=== PATIENT | female | born 1935 | race Caucasian/White ===

== ENCOUNTER 2020-04-24 22:49 | Inpatient (IN) ==
[2020-04-25] MEDS ORDERED: *HR* FentaNYL (PF) 100 MCG/2 ML VIAL IVP ONE (01:03)
[2020-04-25 01:59] LABS: Basophils # 0.1 K/mcL (0.0-0.2); Basophils % 0.7 %; Eosinophils # 0.3 K/mcL (0.0-0.6); Eosinophils % 2.8 %; Hematocrit 42.6 % (35.3-44.9); Hemoglobin 13.7 g/dL (11.5-15.4); Immature Granulocytes % 0.2 % (0-4); Lymphocytes # 2.4 K/mcL (0.6-4.6); Lymphocytes % 27.4 %; Mean Corpuscular HGB Conc 32.2 g/dL (31.6-35.5); Mean Corpuscular Hemoglobin 32.3 pg (28.0-33.3); Mean Corpuscular Volume 100.5 fL (83.0-100.0); Mean Platelet Volume 9.9 fL (9.4-12.4); Monocytes # 0.8 K/mcL (0.0-1.3); Monocytes % 9.2 %; Neutrophils # 5.3 K/mcL (1.6-8.9); Platelet Count 228 K/mcL (140-400); Red Blood Count 4.24 M/mcL (3.82-4.97); Red Cell Distribution Width 13.2 % (11.5-14.5); Segmented Neutrophils % 59.7 %; White Blood Count 8.9 K/mcL (4.3-11.1)
[2020-04-25 02:20] LABS: BUN/Creatinine Ratio 25 (6-26); Blood Urea Nitrogen 21 mg/dL (8-23); Calcium 9.7 mg/dL (8.6-10.3); Carbon Dioxide 24 mEq/L (23-29); Chloride 103 mEq/L (98-107); Glucose 109 mg/dL (70-105); Osmolality,Calculated 292 (280-300); Potassium 4.1 mEq/L (3.5-5.1); Sodium 139 mEq/L (136-145); eGFR For African Americans > 60 (> 60); eGFR For Non-African Americans > 60 (> 60)
[2020-04-25 02:46] LABS: Adenovirus Not Detected (Not Detect); Bordetella Pertussis Not Detected (Not Detect); Chlamydophila pneumoniae Not Detected (Not Detect); Coronavirus 229E Not Detected (Not Detect); Coronavirus HKU1 Not Detected (Not Detect); Coronavirus NL63 Not Detected (Not Detect); Coronavirus OC43 Not Detected (Not Detect); Human Metapneumovirus Not Detected (Not Detect); Human Rhinovirus/Enterovirus Not Detected (Not Detect); Influenza A Subtype 2009 H1 Not Detected (Not Detect); Influenza B Not Detected (Not Detect); Mycoplasma pneumoniae Not Detected (Not Detect); Parainfluenza Virus 1 Not Detected (Not Detect); Parainfluenza Virus 2 Not Detected (Not Detect); Parainfluenza Virus 3 Not Detected (Not Detect); Parainfluenza Virus 4 Not Detected (Not Detect); Respiratory Syncytial Virus Not Detected (Not Detect); SARS-CoV-2 Not Detected (Not Detect)
[2020-04-25] MEDS ORDERED: Naloxone 0.4 MG/ML INJ IVP PRN (03:36)
[2020-04-25] MEDS ORDERED: Morphine Sulfate 2 MG/ML SYRINGE IVP PRN (03:56)
[2020-04-25] MEDS: *HR* HYDROmorphone (PF) 1 MG/ML SYRINGE IVP PRN (04:59)
[2020-04-25] MEDS: Ondansetron 4 MG/2 ML VIAL IVP PRN ×2 (06:30→19:58)
[2020-04-25] MEDS ORDERED: Ipratropium/Albuterol Neb 3 ML IH PRN (06:58)
[2020-04-25] MEDS: Primidone 50 MG TABLET PO SCH ×2 (09:07→20:54)
[2020-04-25] MEDS ORDERED: Acetaminophen IV 500 MG/50 ML INFUS..BTL IVPB ONE (09:30)
[2020-04-25] MEDS: Acetaminophen IV 500 MG/50 ML INFUS..BTL IVPB SCH ×2 (17:37→22:26)
[2020-04-25] MEDS: ALPRAZolam 0.25 MG TABLET PO SCH (20:55)
[2020-04-25] MEDS: QUEtiapine Fumarate 300 MG TABLET PO SCH (20:56)
[2020-04-25] MEDS: FLUPHENAZINE PO SCH (22:21)
[2020-04-26] MEDS: Acetaminophen IV 500 MG/50 ML INFUS..BTL IVPB SCH ×4 (03:18→23:09)
[2020-04-26] MEDS: QUEtiapine Fumarate 300 MG TABLET PO SCH ×2 (09:39→21:54)
[2020-04-26] MEDS: Primidone 50 MG TABLET PO SCH ×2 (09:40→19:53)
[2020-04-26] MEDS: *HR* HYDROmorphone (PF) 1 MG/ML SYRINGE IVP PRN (09:40)
[2020-04-26] MEDS: Vitamin E 200 UNIT (90MG) CAPSULE PO SCH (10:11)
[2020-04-26] MEDS: Cholecalciferol (D-3) 1,000 UNIT (25MCG) TABLET PO SCH (10:11)
[2020-04-26] MEDS: ALPRAZolam 0.25 MG TABLET PO SCH (19:53)
[2020-04-26] MEDS: FLUPHENAZINE PO SCH (19:56)
[2020-04-27 02:17] LABS: Basophils % 0.7 %; Eosinophils # 0.3 K/mcL (0.0-0.6); Hematocrit 36.5 % (35.3-44.9); Immature Granulocytes % 0.2 % (0-4); Lymphocytes # 2.3 K/mcL (0.6-4.6); Lymphocytes % 39.2 %; Mean Corpuscular HGB Conc 32.3 g/dL (31.6-35.5); Mean Corpuscular Hemoglobin 33.2 pg (28.0-33.3); Mean Corpuscular Volume 102.8 fL (83.0-100.0); Mean Platelet Volume 10.1 fL (9.4-12.4); Monocytes # 0.8 K/mcL (0.0-1.3); Monocytes % 13.1 %; Neutrophils # 2.4 K/mcL (1.6-8.9); Platelet Count 177 K/mcL (140-400); Red Blood Count 3.55 M/mcL (3.82-4.97); Red Cell Distribution Width 12.9 % (11.5-14.5); Segmented Neutrophils % 41.8 %; White Blood Count 5.8 K/mcL (4.3-11.1)
[2020-04-27 02:18] LABS: Hemoglobin 11.8 g/dL (11.5-15.4)
[2020-04-27 02:37] LABS: BUN/Creatinine Ratio 26 (6-26); Blood Urea Nitrogen 23 mg/dL (8-23); Calcium 8.2 mg/dL (8.6-10.3); Carbon Dioxide 27 mEq/L (23-29); Chloride 105 mEq/L (98-107); Glucose 101 mg/dL (70-105); Osmolality,Calculated 286 (280-300); Potassium 4.1 mEq/L (3.5-5.1); Sodium 136 mEq/L (136-145); eGFR For African Americans > 60 (> 60); eGFR For Non-African Americans > 60 (> 60)
[2020-04-27] MEDS: Acetaminophen IV 500 MG/50 ML INFUS..BTL IVPB SCH ×4 (03:50→21:41)
[2020-04-27] MEDS: QUEtiapine Fumarate 300 MG TABLET PO SCH (09:19)
[2020-04-27] MEDS: Primidone 50 MG TABLET PO SCH ×2 (09:19→21:39)
[2020-04-27] MEDS: Cholecalciferol (D-3) 1,000 UNIT (25MCG) TABLET PO SCH (09:20)
[2020-04-27] MEDS: Vitamin E 200 UNIT (90MG) CAPSULE PO SCH (09:20)
[2020-04-27] MEDS ORDERED: *HR* HYDROmorphone PF 0.5 MG/0.5 ML SYRINGE IVP PRN ×2 (17:48→20:42)
[2020-04-27] MEDS ORDERED: *HR* OxyCODONE Immed Rel 5 MG TABLET PO PRN ×2 (17:48→20:42)
[2020-04-27] MEDS ORDERED: ROPIVACAINE/PF/NS 0.25% 1 EACH SYRINGE INTRAART ONE (17:54)
[2020-04-27] MEDS ORDERED: Ropivacaine/PF 0.5% 30 ML VIAL ONE ×2 (17:57→18:00)
[2020-04-27] MEDS ORDERED: *HR* FentaNYL (PF) 100 MCG/2 ML VIAL ONE (18:05)
[2020-04-27] MEDS ORDERED: Ondansetron 4 MG/2 ML VIAL ONE (18:22)
[2020-04-27] MEDS ORDERED: Dexamethasone 4 MG/ML VIAL ONE (18:22)
[2020-04-27] MEDS ORDERED: Lidocaine -MPF 2% 2 ML VIAL ONE (18:22)
[2020-04-27] MEDS ORDERED: *HR* Propofol 200 MG/20 ML VIAL IVP ONE (18:23)
[2020-04-27] MEDS ORDERED: ceFAZolin 2,000 MG in Water for inj. (sterile) 20 ML IVP ONE (18:58)
[2020-04-27] MEDS ORDERED: *HR* HYDROmorphone (PF) 1 MG/ML SYRINGE IVP PRN (20:42)
[2020-04-27] MEDS ORDERED: Ipratropium/Albuterol Neb 3 ML IH PRN (20:42)
[2020-04-27] MEDS ORDERED: Naloxone 0.4 MG/ML INJ IVP PRN (20:42)
[2020-04-27] MEDS ORDERED: Ondansetron 4 MG/2 ML VIAL IVP PRN (20:42)
[2020-04-27 20:58] LABS: Hematocrit 39.8 % (35.3-44.9); Hemoglobin 12.9 g/dL (11.5-15.4)
[2020-04-27] MEDS ORDERED: QUEtiapine Fumarate 100 MG TABLET PO SCH (21:00)
[2020-04-27] MEDS ORDERED: Patient Taking Own Medication 1 EACH PO SCH (21:00)
[2020-04-27] MEDS: QUEtiapine Fumarate 100 MG TABLET PO SCH (21:39)
[2020-04-27] MEDS: ALPRAZolam 0.25 MG TABLET PO SCH (21:39)
[2020-04-27] MEDS: FLUPHENAZINE PO SCH (21:41)
[2020-04-28] MEDS: ceFAZolin 2,000 MG in 0.9 % Sodium Chloride 100 ML IVPB SCH ×2 (00:02→08:10)
[2020-04-28 03:04] LABS: Hematocrit 36.8 % (35.3-44.9); Mean Corpuscular HGB Conc 32.6 g/dL (31.6-35.5); Mean Corpuscular Hemoglobin 33.6 pg (28.0-33.3); Mean Corpuscular Volume 103.1 fL (83.0-100.0); Mean Platelet Volume 9.9 fL (9.4-12.4); Platelet Count 177 K/mcL (140-400); Red Blood Count 3.57 M/mcL (3.82-4.97); Red Cell Distribution Width 12.6 % (11.5-14.5); White Blood Count 5.6 K/mcL (4.3-11.1)
[2020-04-28] MEDS: Acetaminophen IV 500 MG/50 ML INFUS..BTL IVPB SCH ×4 (04:01→21:14)
[2020-04-28] MEDS: QUEtiapine Fumarate 100 MG TABLET PO SCH ×2 (07:36→20:32)
[2020-04-28] MEDS: Vitamin E 200 UNIT (90MG) CAPSULE PO SCH (07:36)
[2020-04-28] MEDS: Cholecalciferol (D-3) 1,000 UNIT (25MCG) TABLET PO SCH (07:38)
[2020-04-28] MEDS: Primidone 50 MG TABLET PO SCH ×2 (07:38→20:33)
[2020-04-28] MEDS ORDERED: QUEtiapine Fumarate 100 MG TABLET PO SCH (09:00)
[2020-04-28] MEDS ORDERED: (Alendronate Sodium [Fosamax] 70 MG) PO SCH (17:45)
[2020-04-28] MEDS: ALPRAZolam 0.25 MG TABLET PO SCH (20:32)
[2020-04-28] MEDS: FLUPHENAZINE PO SCH (20:34)
[2020-04-29] MEDS: Acetaminophen IV 500 MG/50 ML INFUS..BTL IVPB SCH ×2 (03:06→09:07)
[2020-04-29 05:31] LABS: Hematocrit 34.6 % (35.3-44.9); Hemoglobin 11.3 g/dL (11.5-15.4); Mean Corpuscular HGB Conc 32.7 g/dL (31.6-35.5); Mean Corpuscular Hemoglobin 32.4 pg (28.0-33.3); Mean Corpuscular Volume 99.1 fL (83.0-100.0); Mean Platelet Volume 9.9 fL (9.4-12.4); Platelet Count 188 K/mcL (140-400); Red Blood Count 3.49 M/mcL (3.82-4.97); Red Cell Distribution Width 12.8 % (11.5-14.5); White Blood Count 5.2 K/mcL (4.3-11.1)
[2020-04-29] MEDS: Vitamin E 200 UNIT (90MG) CAPSULE PO SCH (09:06)
[2020-04-29] MEDS: Primidone 50 MG TABLET PO SCH (09:06)
[2020-04-29] MEDS: QUEtiapine Fumarate 100 MG TABLET PO SCH (09:06)
[2020-04-29] MEDS: Cholecalciferol (D-3) 1,000 UNIT (25MCG) TABLET PO SCH (09:07)
[2020-04-29 15:06] VITALS: BP 117/64
[2020-05-04] MEDS ORDERED: (Alendronate Sodium [Fosamax] 70 MG) PO SCH (17:45)
== END 2020-04-29 17:16 | DRG 512 ==
LOC: 3NENU 22:49 → EMEROOARM 22:49 → 3NENU 04-25 03:15 → SUATTDRO 04-25 14:39
PROVIDERS: ADMIT Internal Medicine; ATTEND Internal Medicine